=== PATIENT | female | born 1945 | race Caucasian/White ===

== ENCOUNTER 2017-04-04 06:11 | Emergency (ER) | payer MEDICARE, MEDICAID ==
[~2017-04-04] VITALS: Ht 152.4 cm; Wt 63.6 kg
[2017-04-04 06:13] VITALS: Ht 152.4 cm; Wt 63.6 kg
[2017-04-04 06:45] VITALS: TEMP 98.6
[2017-04-04] MEDS ORDERED: ONDANSETRON 4 MG INJ IV STA (06:45)
[2017-04-04] MEDS ORDERED: SOD CHLORIDE 0.9% 1,000 ML IV STA (06:45)
--- NOTE | 2017-04-04 07:18 | ERD ---
ER Documentation Chief Complaint Date/Time DATE: 04/04/17 TIME: 07:18 Chief Complaint CECY [id number] from home,c/o dizziness,nausea & AP after eating marijuana cooki HPI 72-year-old female with a history of Parkinson's disease, hypertension, and stroke with left lower extremity deficits brought in by ambulance from home complaining of dizziness nausea, and epigastric pain after eating a marijuana cookie that her friend gave her. Per her at bedside, the patient has been having some difficulty sleeping. She ate a marijuana cookie to help with sleep. She has never had this before. Patient is currently complaining of dizziness, dry mouth, and increased left lower extremity weakness. Per her , she has had a stroke in the past with left lower extremity chronic deficits. He thinks it is because of the marijuana cookie that she feels this way. She has had symptoms since 5 hours ago which do not seem to be improving much. She denies any chest pain, shortness of breath, vision disturbance, any other focal weakness or numbness, dysuria, or vomiting. No fevers or chills. She felt fine prior to the cookie. She denies any concurrent other drug use or alcohol use. ROS All systems reviewed and are negative except as per history of present illness. Allergies Allergies: Coded Allergies: iodine (Verified Allergy, 08/06/13) PMhx/Soc History of Surgery: Yes (STENTS) Hx Cardiac Disorders: Yes (HTN,STENTS) Hx Miscellaneous Medical Probl: Yes (ANXIETY) Hx Alcohol Use: No Hx Substance Use: No Hx Tobacco Use: No FmHx Family History: No coronary disease Physical Exam Vitals Vital Signs Date Time Temp Pulse Resp B/P Pulse Ox O2 Delivery O2 Flow Rate FiO2 04/04/17 10:31 91 18 115/48 95 Room Air 04/04/17 08:55 91 19 127/81 97 Room Air 04/04/17 06:45 98.6 04/04/17 06:29 99.0 88 19 143/87 97 Room Air 04/04/17 06:13 101.2 95 18 154/84 97 Physical Exam Const: Appears sleepy but alert, nontoxic, no distress Head: Atraumatic Eyes: Normal Conjunctiva ENT: Normal External Ears, Nose and Mouth. Dry mucous membranes Neck: Full range of motion..~ No meningismus. No JVD Resp: Clear to auscultation bilaterally Cardio: Regular rate and rhythm, no murmurs. 2+ distal pulses Abd: Soft, non tender, non distended. Negative Zelaya sign. No McBurney's point tenderness. Normal bowel sounds Skin: No petechiae or rashes Back: No midline or flank tenderness Ext: No cyanosis, or edema Neur: Awake and alert and oriented 3, cranial nerves intact, sensations intact in all 4 extremities. Right lower extremity 5 out of 5 strength. Left lower extremity with poor effort but when encouraged, seems to have at least 4+ out of 5 strength with hip flexion, knee extension, knee flexion, plantar and dorsiflexion. Psych: Normal Mood and Affect Result Diagram: 04/04/17 0715 04/04/17 0715 Results 24 hrs Laboratory Tests Test 04/04/17 07:15 04/04/17 07:28 04/04/17 08:46 White Blood Count 9.810^3/ul Red Blood Count 4.0810^6/ul Hemoglobin 12.5g/dl Hematocrit 36.9% Mean Corpuscular Volume 90.4fl Mean Corpuscular Hemoglobin 30.6pg Mean Corpuscular Hemoglobin Concent 33.9g/dl Red Cell Distribution Width 13.4% Platelet Count 63201^3/UL Mean Platelet Volume 9.9fl Neutrophils % 80.5% Lymphocytes % 14.7% Monocytes % 4.1% Eosinophils % 0.0% Basophils % 0.2% Nucleated Red Blood Cells % 0.0/100WBC Neutrophils # (Manual) 810^3/ul Lymphocytes # 1.410^3/ul Monocytes # 0.410^3/ul Eosinophils # 0.010^3/ul Basophils # 0.010^3/ul Nucleated Red Blood Cells # 0.010^3/ul Sodium Level 135mmol/L Potassium Level 4.3mmol/L Chloride Level 98mmol/L Carbon Dioxide Level 25mmol/L Anion Gap 16 Blood Urea Nitrogen 13mg/dl Creatinine 0.73mg/dl Glucose Level 115mg/dl Calcium Level 9.0mg/dl Total Bilirubin 0.3mg/dl Direct Bilirubin 0.00mg/dl Indirect Bilirubin 0.3mg/dl Aspartate Amino Transf (AST/SGOT) 19IU/L Alanine Aminotransferase (ALT/SGPT) 28IU/L Alkaline Phosphatase 54IU/L Troponin I < 0.012ng/ml Total Protein 7.3g/dl Albumin 4.4g/dl Globulin 2.90g/dl Albumin/Globulin Ratio 1.51 Ethyl Alcohol Level < 10.0mg/dl Bedside Glucose 107mg/dL Urine Color YELLOW Urine Clarity CLEAR Urine pH 6.0 Urine Specific [place] 1.014 Urine Ketones NEGATIVEmg/dL Urine Nitrite NEGATIVEmg/dL Urine Bilirubin NEGATIVEmg/dL Urine Urobilinogen NEGATIVEmg/dL Urine Leukocyte Esterase TRACELeu/ul Urine Microscopic RBC 2/HPF Urine Microscopic WBC 8/HPF Urine Squamous Epithelial Cells FEW/HPF Urine Hemoglobin NEGATIVEmg/dL Urine Glucose NEGATIVEmg/dL Urine Total Protein NEGATIVEmg/dl Current Medications Medications (Trade) Dose Ordered Sig/Nicole Route PRN Reason Start Time Stop Time Status Last Admin Dose Admin Sodium Chloride (NS) 1,000 ml @ 1,000 mls/hr Q1H STAT IV 04/04/17 06:45 04/04/17 07:44 DC 04/04/17 07:30 Ondansetron HCl (Zofran Inj) 4 mg ONCE STAT IV 04/04/17 06:45 04/04/17 06:48 DC 04/04/17 07:30 Procedures/MDM Labs CBC: no anemia or evidence of infection CMP: No evidence of electrolyte abnormality, renal failure, hypoglycemia, liver failure, or biliary obstruction Troponin within normal limits UA: no evidence of infection EKG: Rate/Rhythm: Normal Sinus Rhythm QRS, ST, T-waves: No changes consistent w/ acute ischemia, nonspecific T- wave abnormality Impression: No evidence of ischemia or arrhythmia Repeat EKG: Rate/Rhythm: Normal Sinus Rhythm QRS, ST, T-waves: No changes consistent w/ acute ischemia, nonspecific T- wave abnormality Impression: No evidence of ischemia or arrhythmia Imaging CT head shows no acute abnormalities MDM Patient is presenting with multiple symptoms after eating a marijuana cookie. Vitals are stable and initially it showed that she was febrile, but to repeat temperatures after that were within normal limits. I have a low suspicion for sepsis in this patient. With regard to her lower extremity weakness, is likely exacerbated by her marijuana use, but I doubt acute stroke. Code Stroke was not activated as her symptoms have been going on for greater than 4-1/2 hours, and I have a very low suspicion for this. Her labs were normal. She has no evidence of sepsis. I doubt ACS. Patient given IV fluids and monitored with improvement in her symptoms. Patient discharged home with her with strict return precautions. I advised against the use of marijuana again. Patient's blood pressure was elevated (>120/80) but appears stable without evidence of hypertension emergency or urgency. The patient was counseled about the risks of hypertension and urged to pursue outpatient monitoring and therapy within a week with their primary care physician. Departure Diagnosis: Primary Impression: Marijuana use Additional Impressions: Dizziness Generalized weakness Condition: Stable EKSADIE SCHMITZ MD Apr 04, 2017 07:18
[2017-04-04 07:41] LABS: BASOPHILS % 0.2 % (0.0-2.0); HEMATOCRIT 36.9 % (37.0-47.0); HEMOGLOBIN 12.5 g/dl (12.0-16.0); LYMPHOCYTES # 1.4 10^3/ul (0.8-2.9); LYMPHOCYTES % 14.7 % (15.0-51.0); MEAN CORPUSCULAR HEMOGLOBIN 30.6 pg (29.0-33.0); MEAN CORPUSCULAR HGB CONC 33.9 g/dl (32.0-37.0); MEAN CORPUSCULAR VOLUME 90.4 fl (82.0-101.0); MEAN PLATELET VOLUME 9.9 fl (7.4-10.4); MONOCYTE # 0.4 10^3/ul (0.3-0.9); MONOCYTES % 4.1 % (0.0-11.0); NEUTROPHILS % 80.5 % (39.0-77.0); PLATELET COUNT 345 10^3/UL (140-415); RED BLOOD COUNT 4.08 10^6/ul (4.20-5.40); RED CELL DISTRIBUTION WIDTH 13.4 % (11.5-14.5); WHITE BLOOD COUNT 9.8 10^3/ul (4.8-10.8)
--- NOTE | 2017-04-04 07:44 | RADRPT ---
PROCEDURE: CT Brain without contrast. CLINICAL INDICATION: Dizziness. Headaches. TECHNIQUE: CT scan of the brain was performed on a multidetector high-resolution CT scan. Axial im aging was obtained of the brain without contrast administration. Coronal and sagittal reformatted i mages were obtained from the axial source images. Standard CT scan of the head without contrast prot ocols were performed. The total exam CTDI equals 42.81 mGy and the total exam DLP equals 720.23 mGy-cm. One or more of the following dose reduction techniques were used: - Automated exposure control. - Adjustment of the mA and/or kV according to patient size. Use of iterative reconstruction technique. COMPARISON: None. FINDINGS: The ventricular system and peripheral CSF spaces are unremarkable. Negative for intracranial masses hemorrhages or midline shift. The arce-white matter junction is unremarkable. The bones of the ca lvarium are intact. Paranasal sinuses and mastoids are unremarkable. IMPRESSION: No evidence of intracranial masses hemorrhages or midline shift. RPTAT:AAJJ Physician Hema Date Time Electronically viewed and signed by Physician Hema on 04/04/2017 07:44 BM/
[2017-04-04 08:01] LABS: ALANINE AMINOTRANSFERASE 28 IU/L (13-69); ALBUMIN 4.4 g/dl (3.3-4.9); ALBUMIN/GLOBULIN RATIO 1.51; ALKALINE PHOSPHATASE 54 IU/L (42-121); ANION GAP 16 (8-16); ASPARTATE AMINO TRANSFERASE 19 IU/L (15-46); BILIRUBIN,INDIRECT 0.3 mg/dl (0-1.1); BILIRUBIN,TOTAL 0.3 mg/dl (0.2-1.3); BLOOD UREA NITROGEN 13 mg/dl (7-20); CARBON DIOXIDE 25 mmol/L (21-31); CHLORIDE 98 mmol/L (97-110); CREATININE 0.73 mg/dl (0.44-1.00); GLUCOSE 115 mg/dl (70-220); POTASSIUM 4.3 mmol/L (3.5-5.1); SODIUM 135 mmol/L (135-144); TOTAL PROTEIN 7.3 g/dl (6.1-8.1)
[2017-04-04 08:03] LABS: ETHANOL < 10.0 mg/dl
[2017-04-04 08:13] LABS: TROPONIN-I < 0.012 ng/ml (0.00-0.12)
[2017-04-04 09:29] LABS: ADD UMIC YES; UR ASCORBIC ACID NEGATIVE (NEGATIVE); UR BILIRUBIN (Dip) NEGATIVE (NEGATIVE); UR BLOOD (Dip) NEGATIVE (NEGATIVE); UR CLARITY CLEAR (CLEAR); UR COLOR YELLOW (YELLOW); UR GLUCOSE (Dip) NEGATIVE (NEGATIVE); UR KETONES (Dip) NEGATIVE (NEGATIVE); UR LEUKOCYTE ESTERASE (Dip) TRACE Leu/ul (NEGATIVE); UR NITRITE (Dip) NEGATIVE (NEGATIVE); UR RBC 2 /HPF (0-5); UR SPECIFIC GRAVITY (Dip) 1.014 (1.003-1.030); UR SQUAMOUS EPITHELIAL CELL FEW /HPF (FEW); UR TOTAL PROTEIN (Dip) NEGATIVE (NEGATIVE); UR UROBILINOGEN (Dip) NEGATIVE (NEGATIVE)
[2017-04-04 10:31] VITALS: BP 115/48; PULSE 91; RESP 18
== END 2017-04-04 11:23 | disposition home or self-care (01) ==
LOC: E/R 06:11
DX: F12.90 Cannabis use, unspecified, uncomplicated (principal); R40.2252 Coma scale, best verbal response, oriented, at arrival to emergency department; R53.1 Weakness; I10 Essential (primary) hypertension; G20 Parkinson's disease; R40.2142 Coma scale, eyes open, spontaneous, at arrival to emergency department; R40.2362 Coma scale, best motor response, obeys commands, at arrival to emergency department; Z98.61 Coronary angioplasty status
CPT/HCPCS: 36415; 70450; 80053; 80306; 81001; 82962; 84484; 85025; 93005; 96374; 99285; J2405; J7030

== ENCOUNTER 2018-03-05 19:39 | Emergency (ER) | END 2018-03-05 23:44 | disposition home or self-care (01) ==